=== PATIENT | male | born 1950 | race Caucasian/White ===

== ENCOUNTER → 2016-05-04 | Outpatient (CLI) | payer OTHER, BC ==
[~2016-05-04] MED LIST: ACT15 PO; BYTI10 SQ; COQ10100 PO; CPR500 PO; GLC500 PO; INSDGI SC; LISI10TA PO; MULT-506 PO; OMEG10007 PO; SIMV80TA2 PO; VGR50 PO
--- NOTE | 2016-05-04 11:05 | DIAGNOSTIC IMAGING REPORT ---
LEFT KNEE 1 OR 2 VIEWS ROUTINE CLINICAL HISTORY: Left knee pain COMPARISON: None. DISCUSSION: No fractures are visualized. There is subtle chondrocalcinosis. There are degenerative changes with narrowing medial joint compartment. There is quadriceps insertional calcification at the superior patellar level. There is no evidence for soft tissue swelling. IMPRESSION: 1. No acute fractures 2. Mild degenerative changes with medial joint compartment narrowing 3. Very subtle chondrocalcinosis Electronically signed by: Edwin Dumont M.D. 05/04/2016 11:04 AM Dictated Date/Time: 05/04/2016 11:03 AM
== END | disposition home or self-care (01) ==
LOC: C.RAD1850 10:38
PROVIDERS: ATTEND Family Medicine
DX: M25.562 Pain in left knee (principal)

== ENCOUNTER → 2016-08-14 | Outpatient (CLI) | payer OTHER, BC ==
[2016-08-14 12:51] LABS: ALT/SGPT 82 U/L (12-78); BLOOD UREA NITROGEN 17 mg/dl (7-18); BUN/CREATININE RATIO 20.5 (10-20); CARBON DIOXIDE 28 mmol/L (21-32); CHLORIDE 106 mmol/L (98-107); CHOLESTEROL 136 mg/dl (0-200); CREATININE 0.84 mg/dl (0.60-1.40); GLUCOSE 122 mg/dl (70-99); POTASSIUM 4.4 mmol/L (3.5-5.1); SODIUM 139 mmol/L (136-145); TRIGLYCERIDES 95 mg/dl (0-150); VERY LOW DENSITY LIPOPROT CALC 19 mg/dl
[2016-08-14 12:52] LABS: ESTIMATED AVERAGE GLUCOSE 160 mg/dl; HA1C FLAG Normal (Normal)
[2016-08-14 13:02] LABS: ALKALINE PHOSPHATASE 58 U/L (45-117); AST/SGOT 40 U/L (15-37); CHOLESTEROL/HDL RATIO 3.5; HDL CHOLESTEROL 39 mg/dl; LDL CHOLESTEROL CALCULATED 78 mg/dl
[2016-08-14 13:03] LABS: CALCIUM 9.8 mg/dl (8.5-10.1)
[2016-08-14 13:23] LABS: RATIO 5.5 mcg/mg (0-30.0)
--- NOTE | 2016-08-19 12:59 | CODING QUERY MEDICAL NECESSITY ---
SUPPORTING DIAGNOSIS NEEDED A supporting diagnosis is required for the test/procedure performed on this patient in order for us to be reimbursed by the patient's insurance. Please provide a supporting diagnosis for the following test/procedure listed below next to the test name along with your signature. *If there is no additional diagnosis for this patient that would support the following test/procedure please document that below next to the test/procedure. Test(s)/Procedure(s) that require a supporting diagnosis: DOS 08/14 * Hba1c DIAGNOSIS: * TSH DIAGNOSIS: Provider Signature: Date: Thank you Rhonda [facility] Once completed, please kindly fax back to [phone] For questions please call [phone]
== END | disposition home or self-care (01) ==
LOC: C.LAB1850 10:38
PROVIDERS: ATTEND Physician Assistant
DX: E66.9 Obesity, unspecified (principal); E11.9 Type 2 diabetes mellitus without complications

== ENCOUNTER → 2016-09-16 | Outpatient (CLI) | payer OTHER, BC ==
[2016-09-16 09:32] LABS: BASO % 0.2 %; BASO ABS # 0.01 K/uL (0-0.2); COMPLETE YES; EOS % 3.5 %; HEMATOCRIT 40.3 % (42-52); IG% 0.2 %; LYMPH % 39.5 %; MEAN CELL VOLUME 90.6 fL (80-100); MEAN CORPUSCULAR HEMOGLOBIN 29.7 pg (25-34); MEAN CORPUSCULAR HGB CONC 32.8 g/dl (32-36); MEAN PLATELET VOLUME 9.3 fL (7.4-10.4); MONO % 10.5 %; NEUT % 46.1 %; PLATELET COUNT 294 K/uL (130-400); RED BLOOD COUNT 4.45 M/uL (4.7-6.1); WHITE BLOOD COUNT 6.58 K/uL (4.8-10.8)
[2016-09-16 09:56] LABS: ALKALINE PHOSPHATASE 53 U/L (45-117); ALT/SGPT 50 U/L (12-78); AST/SGOT 28 U/L (15-37)
== END | disposition home or self-care (01) ==
LOC: C.LAB1850 07:54
PROVIDERS: ATTEND Physician Assistant
DX: E11.9 Type 2 diabetes mellitus without complications (principal); E78.5 Hyperlipidemia, unspecified

== ENCOUNTER → 2017-03-04 | Outpatient (CLI) | payer OTHER, BC ==
[2017-03-04 12:53] LABS: ESTIMATED AVERAGE GLUCOSE 177 mg/dl; HA1C FLAG Normal (Normal)
== END | disposition home or self-care (01) ==
LOC: C.LAB1850 10:36
PROVIDERS: ATTEND Physician Assistant
DX: E11.9 Type 2 diabetes mellitus without complications (principal)

== ENCOUNTER → 2017-06-29 | Outpatient (CLI) | payer OTHER, BC ==
[2017-06-29 09:41] LABS: ALBUMIN 3.2 gm/dl (3.4-5.0); ALT/SGPT 116 U/L (12-78); AST/SGOT 54 U/L (15-37); BLOOD UREA NITROGEN 14 mg/dl (7-18); CALCIUM 9.9 mg/dl (8.5-10.1); CARBON DIOXIDE 29 mmol/L (21-32); CREATININE 0.84 mg/dl (0.60-1.40); GLUCOSE 85 mg/dl (70-99); POTASSIUM 4.7 mmol/L (3.5-5.1); SODIUM 139 mmol/L (136-145)
[2017-06-29 09:52] LABS: ALKALINE PHOSPHATASE 48 U/L (45-117); CHOLESTEROL 108 mg/dl (0-200); LDL CHOLESTEROL CALCULATED 55 mg/dl; TOTAL PROTEIN 7.5 gm/dl (6.4-8.2)
== END | disposition home or self-care (01) ==
LOC: C.LAB1850 07:58
PROVIDERS: ATTEND Physician Assistant
DX: E11.9 Type 2 diabetes mellitus without complications (principal); I10 Essential (primary) hypertension; E78.5 Hyperlipidemia, unspecified; E66.9 Obesity, unspecified

== ENCOUNTER → 2017-07-26 | Outpatient (CLI) | payer OTHER, BC ==
--- NOTE | 2017-07-26 07:53 | DIAGNOSTIC IMAGING REPORT ---
ABDOMINAL ULTRASOUND, RIGHT UPPER QUADRANT HISTORY: Abnormal LFTs.. COMPARISON: Abdominal ultrasound 02/03/2012. FINDINGS: Pancreas: There appears to be a 1.4 x 1.2 x 1.1 cm hypoechoic/cystic lesion at the pancreatic head. This is suboptimally assessed due to the overlying bowel gas. Liver: The liver is slightly echogenic consistent with mild fatty change. Gallbladder: Normal gallbladder. No gallstones. CBD: 6 mm. Right kidney: No hydronephrosis. A 5.9 x 4.6 cm exophytic cyst within the lower pole. This is similar in size to the prior studies. IMPRESSION: 1. Slightly echogenic liver suggestive of mild fatty change. 2. Normal gallbladder. 3. A 1.4 x 1.2 x 1.1 cm hypoechoic/cystic lesion at the pancreatic head. This favors a cystic neoplasm of the pancreas suggests an intraductal papillary mucinous neoplasm. Dedicated pancreatic MRI with MRCP is recommended for confirmation. Electronically signed by: Femi Vigil M.D. 07/26/2017 7:52 AM Dictated Date/Time: 07/26/2017 7:38 AM
== END | disposition home or self-care (01) ==
LOC: C.ULTR 07:03
PROVIDERS: ATTEND Internal Medicine Gastroenterology
DX: R79.89 Other specified abnormal findings of blood chemistry (principal)

== ENCOUNTER → 2017-08-27 | Outpatient (CLI) | payer OTHER, BC ==
[~2017-08-27] MED LIST changes: +GADAVIST IV PRN
--- NOTE | 2017-08-27 23:35 | DIAGNOSTIC IMAGING REPORT ---
ABDOMEN COMBO HISTORY: 66 years-old Male PANCREATIC CYST,FATTY LIVER,EVAL BLOCKAGE OF DUCTS 1.4 cm cystic lesion of the pancreatic head seen on comparison ultrasound. COMPARISON: Right upper quadrant ultrasound 07/26/2017 TECHNIQUE: Multiplanar multisequence MRI of the abdomen was obtained both with and without 11.5 mL Gadavist utilizing pancreatic mass protocol. MRCP images were also obtained. FINDINGS: The imaged lower thorax appears unremarkable. No pleural effusion. Imaged inferior cardiac chambers appear mildly enlarged. No pericardial effusion. Thoracic aorta and IVC are unremarkable. No aortic aneurysm. Portal and splenic veins appear unremarkable. No bulky adenopathy. There are a few subcentimeter T2 hyperintense lesions of the right hepatic lobe measuring up to 8 mm suggesting hepatic cysts. No intrahepatic biliary ductal dilation. Common bile duct measures 4 mm. Gallbladder is unremarkable without cholelithiasis. No pancreatic duct dilation or evidence of pancreatic divisum. There is a 9 x 9 x 12 mm circumscribed T2 hyperintense homogeneous nonenhancing lesion of the pancreatic head nicely seen on image 15 series 6 and image 67 of series 13 which appears to communicate with the main pancreatic duct. Renal sinus cysts are noted bilaterally measuring up to 4.5 cm on the right. Renal sinus cysts are seen on the left measuring up to 1.1 cm. Mild nonspecific bilateral perinephric stranding without hydronephrosis. Spleen and adrenal glands appear unremarkable. Mild levoscoliosis of the lumbar spine. Soft tissues are unremarkable. Mild diastases recti. IMPRESSION: 1. 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 No suspicious pancreatic lesions or pancreatic ductal dilation identified. 2. Unremarkable appearance of the gallbladder. No biliary ductal dilation. 3. Renal and hepatic cysts. The above report was generated using voice recognition software. It may contain grammatical, syntax or spelling errors. Electronically signed by: Juan Mcqueen M.D. 08/27/2017 11:34 PM Dictated Date/Time: 08/27/2017 7:50 PM
== END | disposition home or self-care (01) ==
LOC: C.MRI 17:56
PROVIDERS: ATTEND Internal Medicine Gastroenterology
DX: K86.2 Cyst of pancreas (principal)

== ENCOUNTER → 2017-11-26 | Outpatient (CLI) | payer OTHER, BC ==
[~2017-11-26] MED LIST changes: -GADAVIST IV PRN
[2017-11-26 09:51] LABS: HEMOGLOBIN A1C 8.8 % (4.5-5.6)
[2017-11-26 09:58] LABS: ALBUMIN 3.6 gm/dl (3.4-5.0); ALKALINE PHOSPHATASE 53 U/L (45-117); ALT/SGPT 100 U/L (12-78); AST/SGOT 66 U/L (15-37); BLOOD UREA NITROGEN 13 mg/dl (7-18); CARBON DIOXIDE 28 mmol/L (21-32); CHOLESTEROL 123 mg/dl (0-200); CREATININE 0.85 mg/dl (0.60-1.40); GLUCOSE 127 mg/dl (70-99); LDL CHOLESTEROL CALCULATED 67 mg/dl; POTASSIUM 4.3 mmol/L (3.5-5.1); SODIUM 138 mmol/L (136-145); TOTAL PROTEIN 7.6 gm/dl (6.4-8.2)
== END | disposition home or self-care (01) ==
LOC: C.LAB1850 08:36
PROVIDERS: ATTEND Physician Assistant
DX: I10 Essential (primary) hypertension (principal); E78.5 Hyperlipidemia, unspecified; E11.9 Type 2 diabetes mellitus without complications

== ENCOUNTER 2020-01-29 09:16 | Observation (INO) ==
[2020-01-29] MEDS ORDERED: ONDANSETRON INJ 2 MG/ML 2 ML VIAL IV STA (09:32)
[2020-01-29] MEDS ORDERED: ACETAMINOPHEN 500 MG TAB PO STA (09:32)
[2020-01-29] MEDS ORDERED: ACETAMINOPHEN 1000 MG/100 ML IV IV ONE (09:37)
--- NOTE | 2020-01-29 09:41 | Emergency Department Note ---
Impression & Plan Acute appendicitis, Fever, Abdominal pain, acute, right lower quadrant, Acute dyspnea ED Provider Note NAME: CRISTEL GUAN AGE: 69 SEX: M : 1950 ARRIVES VIA: Walk-In INFORMANT: Patient, ED PROVIDER(S): Abram Caro DO CHIEF COMPLAINT: Abdominal pain HPI: The patient is a 69-year-old male who presented to the emergency department for an evaluation of right lower quadrant abdominal pain. The patient states his pain began last evening which was diffuse across the lower abdomen. He started having chills this morning and started shaking. He states his pain is mild to moderate at this time. The pain is worsened with any ambulation or movement. He did not take any medication for fever and did not know he had a fever until he came to the emergency department. The patient did not see his primary care physician for the symptoms. The patient was going to schedule an appointment because of the severity of his symptoms his significant other brought him immediately to the emergency department. He denies having any diarrhea. He denies having any cough or recent traveling but does complain of shortness of breath. The patient denies having any lower extremity swelling or rashes. The patient states that he still has his appendix. ROS: See above HPI for pertinent positives & negatives. A total of 10 systems reviewed and were otherwise negative. PAST MEDICAL HISTORY: See Below PAST SURGICAL HISTORY: See Below FAMILY HISTORY: See Below SOCIAL HISTORY: See Below HOME MEDICATIONS: See Below ALLERGIES: See Below VITALS: See Below PHYSICAL EXAMINATION: GENERAL: The patient is awake and alert. He is mildly anxious appearing and appears to be uncomfortable. EYES: The conjunctivae are clear. The pupils are round and reactive. EARS, NOSE, MOUTH AND THROAT: The nose is without any evidence of any deformity. Mucous membranes are moist. Tongue is midline. NECK: The neck is nontender and supple. RESPIRATORY: Diminished breath sounds are noted at the right base. There are faint rales at the right base. There was mild conversational dyspnea appreciated. CARDIOVASCULAR: Tachycardic rate with regular rhythm was noted. There was no definite murmur. GASTROINTESTINAL: The abdomen is moderately distended. There is right middle and right lower quadrant tenderness to palpation. There is guarding in the right middle quadrant. MUSCULOSKELETAL/EXTREMITIES: There is no evidence of gross deformity full range of motion is noted in the hips and shoulders. SKIN: There is no obvious evidence of any rash. Trace pedal edema was noted bilaterally. NEUROLOGIC: Patient is awake alert and oriented x3. MEDICAL DECISION MAKING: The patient is a 69-year-old male who presented to the emergency department for an evaluation of fever. The patient on physical exam was found to have signs of acute appendicitis. I discussed the patient's laboratory and radiographic studies with him. He was treated with IV fluids as well as IV antibiotics. I discussed this findings with the on-call general surgical group. They have agreed to evaluate the patient in the emergency department for further management and disposition. The patient's radiographic studies appear to be consistent with acute appendicitis. Triage Nursing notes reviewed. Prior medical records reviewed Vital Signs: reviewed and remarkable for elevated temperature and initial hypertension. Differential diagnosis: Etiologies such as appendicitis, diverticulitis, obstruction, inflammatory bowel disease, renal colic, PUD, biliary pathology, pancreatitis, mesenteric ischemia, aortic pathology, infections, genitourinary, UTI, perforated viscus, as well as others were entertained. ER treatment provided: See below Diagnostics interpreted by me: ECG: EKG was obtained in the emergency department. My interpretation is normal sinus rhythm 96 bpm. Right bundle branch block pattern was noted. There was no ectopy. No previous tracing was available for comparison. Cardiac Monitoring: An order was placed for continuous cardiac monitoring. The monitor shows a rate of 95 bpm with sinus rhythm. Laboratory studies: As stated above and show below. Imaging studies: See below Consultation(s): 1125: I discussed this case with Sherri who is on-call for the general surgical group. They will evaluate the patient in the emergency department for further management and disposition. Past Med/Surg History Medical History Hyperlipidemia Hypertension Obesity Type 2 diabetes mellitus Surgical History Hx of colonoscopy Family History Father Stroke Heart disease Diabetes Mother Diabetes Hypertension Unknown Diabetes Social History Smoking Status: Never smoker Preferred Language: Greek Feels Safe at Home: Yes Allergies Allergies Allergy/AdvReac Type Severity Reaction Status Date / Time Bactrim Allergy Unknown hives, Verified 11/13/17 15:49 itchiness, weight loss sulfamethoxazole Allergy Unknown hives, Verified 01/29/20 10:08 itchiness, weight loss trimethoprim Allergy Unknown hives, Verified 01/29/20 10:08 itchiness, weight loss Home Meds Home Medications Medication Instructions Recorded Confirmed aspirin 81 mg tablet,delayed 81 mg PO QAM 03/13/19 01/29/20 release glucagon (human recombinant) 1 mg See Rx Instructions .ROUTE 03/13/19 01/29/20 solution for injection .COMPLEX PRN krill 1,000 mg-omega-3 170 mg-dha 1 cap PO BIDM 03/13/19 01/29/20 50 mg-epa 80 cc-nrdbbb-cxgdz capsule lisinopril 40 mg tablet 40 mg PO QAM 03/13/19 01/29/20 metformin 500 mg tablet See Rx Instructions .ROUTE .COMPLEX 03/13/19 01/29/20 multivitamin,dv-vucz-syliwgtb 1 tab PO QAM 03/13/19 01/29/20 simvastatin 40 mg tablet 40 mg PO HS 03/13/19 01/29/20 tamsulosin 0.4 mg capsule 0.4 mg PO HS 03/13/19 01/29/20 vitamin E (dl, acetate) 450 mg 450 mg PO DAILY 10/13/19 01/29/20 (1,000 unit) capsule Previous Rx's Medication Instructions Recorded insulin degludec 200 unit/mL (3 88 units SQ PM 90 Days #39 ml 07/28/19 mL) subcutaneous pen pen needle, diabetic 31 gauge x #400 ea 08/15/1907/09" OneTouch UltraSoft Lancets #300 ea NS 10/13/19 OneTouch Ultra Blue Test Strip #400 ea NS 12/05/19 Novolog Flexpen U-100 Insulin 100 See Rx Instructions SQ TID #30 ml 01/08/20 unit/mL (3 mL) subcutaneous NS Results & Data (ED) Vital Signs Vital Signs - 24 hr 01/29/20 09:21 01/29/20 09:54 01/29/20 10:00 Temperature 38 C H Temperature Source Oral Pulse Rate 118 H 96 H 93 H Pulse Rate from SpO2 Sensor Respiratory Rate 20 20 22 Blood Pressure 204/85 H Blood Pressure Mean 124 Blood Pressure Position Sitting Pulse Oximetry 93 Oxygen Delivery Method Room Air Sepsis Recent Fever Within 48 Hours No Sepsis New/Unexplained Change in Mental Status N/A Sepsis Action Taken by Nursing No Action Required 01/29/20 10:30 01/29/20 10:37 01/29/20 10:38 Temperature Temperature Source Pulse Rate 99 H 102 H 103 H Pulse Rate from SpO2 Sensor 102 H Respiratory Rate 24 24 22 Blood Pressure 136/67 136/67 Blood Pressure Mean 90 74 Blood Pressure Position Pulse Oximetry 92 93 Oxygen Delivery Method Room Air Sepsis Recent Fever Within 48 Hours Sepsis New/Unexplained Change in Mental Status Sepsis Action Taken by Nursing 01/29/20 11:13 01/29/20 11:16 01/29/20 11:17 Temperature Temperature Source Pulse Rate 96 H 92 H 93 H Pulse Rate from SpO2 Sensor 94 H 94 H Respiratory Rate 21 21 17 Blood Pressure 130/66 Blood Pressure Mean 80 Blood Pressure Position Pulse Oximetry 91 93 Oxygen Delivery Method Sepsis Recent Fever Within 48 Hours Sepsis New/Unexplained Change in Mental Status Sepsis Action Taken by Nursing 01/29/20 11:18 01/29/20 11:30 01/29/20 11:31 Temperature 37.7 C H Temperature Source Oral Pulse Rate 100 H 101 H Pulse Rate from SpO2 Sensor 101 H 99 H Respiratory Rate 19 23 Blood Pressure 145/69 H Blood Pressure Mean 104 Blood Pressure Position Pulse Oximetry 93 94 Oxygen Delivery Method Sepsis Recent Fever Within 48 Hours Sepsis New/Unexplained Change in Mental Status Sepsis Action Taken by Fpc Medications Current Medication List: was personally reviewed by me Laboratory Data Attestation: I reviewed the patient's lab results. Result diagrams: 01/29/20 10:05 01/29/20 10:05 Lab Results 01/29/20 01/29/20 01/29/20 Range/Units 10:05 10:05 10:05 WBC 5.28 (4.8-10.8) K/uL RBC 4.36 L (4.7-6.1) M/uL Hgb 13.0 L (14.0-18.0) g/dL POC Hgb (14.0-18.0) g/dl Hct 39.8 L (42-52) % POC Hct (42-52) % MCV 91.3 (80-100) fL MCH 29.8 (25-34) pg MCHC 32.7 (32-36) g/dL RDW Std Deviation 47.3 H (36.4-46.3) fL RDW Coeff of Annette 14.1 (11.5-14.5) % Plt Count 231 (130-400) K/uL MPV 9.3 (7.4-10.4) fL Immature Gran % (Auto) 0.2 % Neut % (Auto) 83.7 % Lymph % (Auto) 13.8 % Pettis % (Auto) 0.6 % Eos % (Auto) 1.7 % Baso % (Auto) 0.0 % Neut # (Auto) 4.42 (1.4-6.5) K/uL Lymph # (Auto) 0.73 L (1.2-3.4) K/uL Pettis # (Auto) 0.03 L (0.11-0.59) K/uL Eos # (Auto) 0.09 (0-0.5) K/uL Baso # (Auto) 0.00 (0-0.2) K/uL Immature Gran # (Auto) 0.01 (0.00-0.02) K/uL PT 10.9 (9.0-12.0) Seconds INR 1.0 (0.9-1.1) APTT 22.4 (21.0-31.0) Seconds PTT Ratio 0.8 POC Sodium (135-144) mmol/L Sodium 138 (136-145) mmol/L POC Potassium (3.3-5.0) mmol/L Potassium 4.4 (3.5-5.1) mmol/L POC Chloride (101-112) mmol/L Chloride 107 (98-107) mmol/L Carbon Dioxide 26 (21-32) mmol/L POC Total CO2 (24-31) mmol/L Anion Gap 6.0 (3-11) POC Anion Gap (16-25) mmol/L POC BUN (7-18) mg/dl BUN 18 (7-18) mg/dl Creatinine 1.07 (0.6-1.4) mg/dl POC Creatinine (0.6-1.3) mg/dl Est Cr Clr Drug Dosing 79.4 ml/min Est GFR ( Amer) 80.5 Est GFR (Non-Af Amer) 69.5 BUN/Creatinine Ratio 16.7 (10-20) Glucose 173 H (70-99) mg/dl POC Glucose (other) (70-99) mg/dl Calcium 9.1 (8.5-10.1) mg/dl POC Ioniz Calcium Colleen (1.12-1.32) mmol/l Total Bilirubin 0.7 (0.2-1) mg/dl AST 22 (15-37) U/L ALT 38 (12-78) U/L Alkaline Phosphatase 61 (45-117) U/L Troponin I < 0.015 (0-0.045) ng/ml Total Protein 7.7 (6.4-8.2) gm/dl Albumin 3.4 (3.4-5.0) gm/dl Globulin 4.3 H (2.5-4.0) gm/dl Albumin/Globulin Ratio 0.8 L (0.9-2) Lipase 816 H (73-393) U/L COVID-19 Eval Order 01/29/20 01/29/20 Range/Units 10:23 11:28 WBC (4.8-10.8) K/uL RBC (4.7-6.1) M/uL Hgb (14.0-18.0) g/dL POC Hgb 13.3 L (14.0-18.0) g/dl Hct (42-52) % POC Hct 39 L (42-52) % MCV (80-100) fL MCH (25-34) pg MCHC (32-36) g/dL RDW Std Deviation (36.4-46.3) fL RDW Coeff of Annette (11.5-14.5) % Plt Count (130-400) K/uL MPV (7.4-10.4) fL Immature Gran % (Auto) % Neut % (Auto) % Lymph % (Auto) % Pettis % (Auto) % Eos % (Auto) % Baso % (Auto) % Neut # (Auto) (1.4-6.5) K/uL Lymph # (Auto) (1.2-3.4) K/uL Pettis # (Auto) (0.11-0.59) K/uL Eos # (Auto) (0-0.5) K/uL Baso # (Auto) (0-0.2) K/uL Immature Gran # (Auto) (0.00-0.02) K/uL PT (9.0-12.0) Seconds INR (0.9-1.1) APTT (21.0-31.0) Seconds PTT Ratio POC Sodium 140 (135-144) mmol/L Sodium (136-145) mmol/L POC Potassium 4.5 (3.3-5.0) mmol/L Potassium (3.5-5.1) mmol/L POC Chloride 103 (101-112) mmol/L Chloride (98-107) mmol/L Carbon Dioxide (21-32) mmol/L POC Total CO2 24 (24-31) mmol/L Anion Gap (3-11) POC Anion Gap 19.0 (16-25) mmol/L POC BUN 18 (7-18) mg/dl BUN (7-18) mg/dl Creatinine (0.6-1.4) mg/dl POC Creatinine 0.8 (0.6-1.3) mg/dl Est Cr Clr Drug Dosing ml/min Est GFR ( Amer) Est GFR (Non-Af Amer) BUN/Creatinine Ratio (10-20) Glucose (70-99) mg/dl POC Glucose (other) 175 H (70-99) mg/dl Calcium (8.5-10.1) mg/dl POC Ioniz Calcium Colleen 1.21 (1.12-1.32) mmol/l Total Bilirubin (0.2-1) mg/dl AST (15-37) U/L ALT (12-78) U/L Alkaline Phosphatase (45-117) U/L Troponin I (0-0.045) ng/ml Total Protein (6.4-8.2) gm/dl Albumin (3.4-5.0) gm/dl Globulin (2.5-4.0) gm/dl Albumin/Globulin Ratio (0.9-2) Lipase (73-393) U/L COVID-19 Eval Order Covid19 IDNow atMVTC Administered Medications Sodium Chloride (Nss 1000ml) 1,000 mls @ 999 mls/hr IV .Q1H1M ONE Stop: 01/29/20 12:40 Last Admin: 01/29/20 11:48 Dose: 999 mls/hr Documented by: [id number] Cefoxitin Sodium (Mefoxin) 2,000 mg in 60 mls @ 100 mls/hr IV NOW STA Stop: 01/29/20 12:15 Last Admin: 01/29/20 12:07 Dose: 100 mls/hr Documented by: [id number] Discontinued Medications Acetaminophen (Acetaminophen 500 Mg Tab) 1,000 mg PO NOW STA Stop: 01/29/20 09:33 Last Admin: 01/29/20 09:39 Dose: Not Given Documented by: [id number] Acetaminophen (Acetaminophen 1000 Mg/100 Ml Iv) 1,000 mg IV ONE ONE Stop: 01/29/20 09:38 Last Admin: 01/29/20 10:41 Dose: 1,000 mg Documented by: [id number] Sodium Chloride (Nss 1000ml) 1,000 mls @ 999 mls/hr IV .Q1H1M KITTY Stop: 01/29/20 10:45 Last Infusion: 01/29/20 11:49 Dose: 0 mls/hr Documented by: [id number] Admin: 01/29/20 10:42 Dose: 999 mls/hr Documented by: [id number] Ioversol (Optiray 320 125ml) 120 ml IV ONCE ONE Stop: 01/29/20 11:07 Last Admin: 01/29/20 11:07 Dose: 120 ml Documented by: [id number] Ondansetron HCl (Ondansetron Inj 2 Mg/Ml 2 Ml Vial) 4 mg IV NOW STA Stop: 01/29/20 09:33 Last Admin: 01/29/20 10:40 Dose: 4 mg Documented by: [id number] Imaging Data Radiologist's Impression: CT ANGIOGRAPHY OF THE CHEST, PULMONARY EMBOLUS PROTOCOL CLINICAL HISTORY: Shortness of breath and tachycardia. COMPARISON STUDY: No previous studies for comparison. TECHNIQUE: Following IV administration of 120 mL of Optiray-320, helical axial images of the chest were obtained utilizing the pulmonary embolus protocol. Maximal intensity projections and sagittal and coronal reformats were viewed on an independent 3D workstation. IV contrast was administered without complication. Automated exposure control was utilized for the study. A dose lowering technique was utilized adhering to the principles of ALARA. CT DOSE: 2393.94 mGy.cm FINDINGS: No pulmonary emboli are identified. There is mild dilatation of the central pulmonary arteries. Main pulmonary artery measures 3.5 cm in caliber. Mild cardiomegaly is noted. There is no pericardial effusion. There is no pneumothorax or pleural effusion. There may be slight straightening of the interventricular septum. Central airways are patent. There is no consolidation. There is mild subpleural reticulation. There is no honeycombing. There is no bronchiectasis. There is a probable 5 mm left upper lobe nodule on image 139. Several mildly enlarged bilateral hilar lymph nodes are noted, including a right hilar node on image 146 of 271 measures 1.3 cm in short axis diameter. The abdomen and pelvis will be reported separately. There is a small hiatal hernia. IMPRESSION: 1. No pulmonary emboli identified although segmental and subsegmental pulmonary suboptimally assessed of this exam. 2. Mild cardiomegaly. Mild dilatation of the central pulmonary arteries which raises the possibility of pulmonary hypertension. 3. Mild subpleural reticulation within the lungs. This favors interstitial lung disease. 4. Mildly enlarged bilateral hilar lymph nodes which are nonspecific but may be related to interstitial lung disease. A follow-up chest CT in 6 months is recommended. 5. 5 mm low suspicion left upper lobe nodule which can be assessed on subsequent chest CT. ACT 112: Negative or not required by law. Electronically signed by: Zaheer Da Silva M.D. 01/29/2020 11:38 AM Dictated: 01/29/20 1111 Transcribed: 01/29/[address] OF THE ABDOMEN AND PELVIS WITH CONTRAST CLINICAL HISTORY: Right lower quadrant abdominal pain. COMPARISON STUDY: MRI of the abdomen September 09, 2018. CT of the abdomen and pelvis September 25, 2011. TECHNIQUE: Following IV administration of 120 mL of Optiray-320, axial images of the abdomen and pelvis were obtained from the lung bases to the proximal femurs. Images were reviewed in the axial, sagittal, and coronal planes. IV contrast was administered without complication. Automated exposure control was utilized for the study. A dose lowering technique was utilized adhering to the principles of ALARA. FINDINGS: Please note that the chest CT will be reported separately. Fatty infiltration of the liver is noted. A 1.3 cm segment 6 hepatic cyst is unchanged. There is no biliary or pancreatic ductal dilatation. A few bilateral renal cysts are noted, the largest of which the 5.5 cm right renal cyst. There is no hydronephrosis. The spleen, adrenal glands and pancreas are unremarkable. There is colonic diverticulosis without evidence for acute diverticulitis. There is no evidence for a bowel obstruction. The appendix is mildly dilated, measuring 7 mm in caliber. The appendix is fluid-filled. There is moderate periappendiceal infiltration. A few appendicoliths are noted. There is no free air or abscess. Bladder wall irregularity with trabeculation is suspected small bladder diverticula are noted. There are no suspicious osseous lesions. IMPRESSION: Findings consistent with acute appendicitis. No free air or abscess. ACT 112: Negative or not required by law. Electronically signed by: Zaheer Da Silva M.D. 01/29/2020 11:17 AM Dictated: 01/29/20 1112 Transcribed: 01/29/20 111 Blood Pressure Blood Pressure Findings: Normal blood pressure Discharge Plan Visit Data Chief Complaint: Abdominal Pain Stated Complaint: LOWER RIGHT SIDE PAIN IN BELOW WAIST, CHILLS ED Provider: Abram Caro Discharge Problem: Acute appendicitis, Fever, Abdominal pain, acute, right lower quadrant, Acute dyspnea Patient Disposition: Being Evaluated by Surgeon Condition: Good Discharge Instructions Barrett/Other Patient Handouts: 2019-nCoV Forms Stand Alone Forms: My [facility]SONE Prescriptions Prescriptions: No Action Tresiba FlexTouch U-200 200 unit/mL (3 mL) insulin pen 88 units SQ PM 90 Days Qty: 39 RF: 3 (DME) pen needle, diabetic [BD Ultra-Fine Mini Pen Needle] 31 gauge x 3/16" needle See Rx Instructions .ROUTE .MEDSUPPLY Qty: 400 RF: 3 (DME) blood sugar diagnostic [OneTouch Ultra Blue Test Strip] Strip See Rx Instructions .ROUTE .MEDSUPPLY Qty: 400 RF: 3 Novolog Flexpen U-100 Insulin 100 unit/mL (3 mL) insulin pen See Rx Instructions SQ TID Qty: 30 RF: 5 aspirin 81 mg tablet,delayed release (DR/EC) 81 mg PO QAM RF: 0 tamsulosin [Flomax] 0.4 mg capsule 0.4 mg PO HS RF: 0 Glucagon Emergency Kit (human) 1 mg recon soln See Rx Instructions .ROUTE .COMPLEX PRN (Reason: Hypoglycemia) RF: 0 [id number]-jr-[id number]-ast [krill oil] [id number] mg capsule 1 cap PO BIDM RF: 0 lisinopril 40 mg tablet 40 mg PO QAM RF: 0 metformin 500 mg tablet See Rx Instructions .ROUTE .COMPLEX RF: 0 Complete Multivitamin tablet 1 tab PO QAM RF: 0 simvastatin 40 mg tablet 40 mg PO HS RF: 0 vitamin E (dl, acetate) 450 mg (1,000 unit) capsule 450 mg PO DAILY RF: 0 (DME) lancets [OneTouch UltraSoft Lancets] Misc See Dose Instructions .ROUTE .MEDSUPPLY Qty: 300 RF: 3 Referrals Referrals: Mikhail Hyman MD [Primary Care Provider] -
[2020-01-29] MEDS ORDERED: SODIUM CHLORIDE 0.9% 1000ML 1,000 ML IV SCH (09:45)
[2020-01-29 10:35] LABS: Eosinophils # (auto) 0.09 K/uL (0-0.5); Eosinophils % (auto) 1.7 %; Hematocrit (blood only) 39.8 % (42-52); Immature Granulocytes # (auto) 0.01 K/uL (0.00-0.02); Immature Granulocytes % (auto) 0.2 %; Lymphocytes # (auto) 0.73 K/uL (1.2-3.4); Lymphocytes % (auto) 13.8 %; Mean Corpuscular Hemoglobin 29.8 pg (25-34); Mean Corpuscular Hgb Conc 32.7 g/dL (32-36); Mean Corpuscular Volume 91.3 fL (80-100); Mean Platelet Volume 9.3 fL (7.4-10.4); Monocytes # (auto) 0.03 K/uL (0.11-0.59); Monocytes % (auto) 0.6 %; Neutrophils # (auto) 4.42 K/uL (1.4-6.5); Neutrophils % (auto) 83.7 %; Platelet Count 231 K/uL (130-400); RDW Coefficient of Variation 14.1 % (11.5-14.5); RDW Standard Deviation 47.3 fL (36.4-46.3); Red Blood Count 4.36 M/uL (4.7-6.1); White Blood Count 5.28 K/uL (4.8-10.8)
[2020-01-29 10:35] LABS: iSTAT Creatinine 0.8 mg/dl (0.6-1.3); iSTAT Hemoglobin 13.3 g/dl (14.0-18.0); iSTAT Ionized Calcium 1.21 mmol/l (1.12-1.32); iSTAT Potassium 4.5 mmol/L (3.3-5.0)
[2020-01-29 10:50] LABS: Alanine Aminotransferase 38 U/L (12-78); Albumin Level 3.4 gm/dl (3.4-5.0); Aspartate Aminotransferase 22 U/L (15-37); BUN Creatinine Ratio 16.7 (10-20); Blood Urea Nitrogen 18 mg/dl (7-18); Calcium 9.1 mg/dl (8.5-10.1); Carbon Dioxide 26 mmol/L (21-32); Chloride 107 mmol/L (98-107); Creatinine Clr Calc Pharmacy 79.4 ml/min; Est GFR (African American) 80.5; Est GFR (Non-African American) 69.5; Glucose 173 mg/dl (70-99); Lipase 816 U/L (73-393); Potassium 4.4 mmol/L (3.5-5.1); Sodium 138 mmol/L (136-145)
[2020-01-29 10:51] LABS: Partial Thromboplastin Ratio 0.8; Partial Thromboplastin Time 22.4 Seconds (21.0-31.0); Prothrombin Time 10.9 Seconds (9.0-12.0)
[2020-01-29 10:54] LABS: Albumin Globulin Ratio 0.8 (0.9-2); Alkaline Phosphatase 61 U/L (45-117); Bilirubin,Total 0.7 mg/dl (0.2-1); Globulin 4.3 gm/dl (2.5-4.0); Total Protein 7.7 gm/dl (6.4-8.2); Troponin I < 0.015 ng/ml (0-0.045)
[2020-01-29] MEDS ORDERED: OPTIRAY 320 125ml IV ONE (11:06)
--- NOTE | 2020-01-29 11:18 | CT Scan Report ---
CT OF THE ABDOMEN AND PELVIS WITH CONTRAST CLINICAL HISTORY: Right lower quadrant abdominal pain. COMPARISON STUDY: MRI of the abdomen September 09, 2018. CT of the abdomen and pelvis September 25, 2011. TECHNIQUE: Following IV administration of 120 mL of Optiray-320, axial images of the abdomen and pelv is were obtained from the lung bases to the proximal femurs. Images were reviewed in the axial, sagit mona, and coronal planes. IV contrast was administered without complication. Automated exposure contr ol was utilized for the study. A dose lowering technique was utilized adhering to the principles of ALARA. FINDINGS: Please note that the chest CT will be reported separately. Fatty infiltration of the liver is noted. A 1.3 cm segment 6 hepatic cyst is unchanged. There is no biliary or pancreatic ductal dila tation. A few bilateral renal cysts are noted, the largest of which the 5.5 cm right renal cyst. Ther e is no hydronephrosis. The spleen, adrenal glands and pancreas are unremarkable. There is colonic di verticulosis without evidence for acute diverticulitis. There is no evidence for a bowel obstruction. The appendix is mildly dilated, measuring 7 mm in caliber. The appendix is fluid-filled. There is mo derate periappendiceal infiltration. A few appendicoliths are noted. There is no free air or abscess. Bladder wall irregularity with trabeculation is suspected small bladder diverticula are noted. There are no suspicious osseous lesions. IMPRESSION: Findings consistent with acute appendicitis. No free air or abscess. ACT 112: Negative or not required by law. Electronically signed by: Zaheer Da Silva M.D. 01/29/2020 11:17 AM
--- NOTE | 2020-01-29 11:39 | CT Scan Report ---
CT ANGIOGRAPHY OF THE CHEST, PULMONARY EMBOLUS PROTOCOL CLINICAL HISTORY: Shortness of breath and tachycardia. COMPARISON STUDY: No previous studies for comparison. TECHNIQUE: Following IV administration of 120 mL of Optiray-320, helical axial images of the chest we re obtained utilizing the pulmonary embolus protocol. Maximal intensity projections and sagittal and coronal reformats were viewed on an independent 3D workstation. IV contrast was administered withou t complication. Automated exposure control was utilized for the study. A dose lowering technique wa s utilized adhering to the principles of ALARA. CT DOSE: 2393.94 mGy.cm FINDINGS: No pulmonary emboli are identified. There is mild dilatation of the central pulmonary ariel sonya. Main pulmonary artery measures 3.5 cm in caliber. Mild cardiomegaly is noted. There is no peric ardial effusion. There is no pneumothorax or pleural effusion. There may be slight straightening of t he interventricular septum. Central airways are patent. There is no consolidation. There is mild subp leural reticulation. There is no honeycombing. There is no bronchiectasis. There is a probable 5 mm l eft upper lobe nodule on image 139. Several mildly enlarged bilateral hilar lymph nodes are noted, in cluding a right hilar node on image 146 of 271 measures 1.3 cm in short axis diameter. The abdomen an d pelvis will be reported separately. There is a small hiatal hernia. IMPRESSION: 1. No pulmonary emboli identified although segmental and subsegmental pulmonary suboptimally assessed of this exam. 2. Mild cardiomegaly. Mild dilatation of the central pulmonary arteries which raises the possibility of pulmonary hypertension. 3. Mild subpleural reticulation within the lungs. This favors interstitial lung disease. 4. Mildly enlarged bilateral hilar lymph nodes which are nonspecific but may be related to interstiti al lung disease. A follow-up chest CT in 6 months is recommended. 5. 5 mm low suspicion left upper lobe nodule which can be assessed on subsequent chest CT. ACT 112: Negative or not required by law. Electronically signed by: Zaheer Da Silva M.D. 01/29/2020 11:38 AM
[2020-01-29] MEDS ORDERED: cefOXitin 2,000 MG/60 ML BAG IV STA (11:40)
[2020-01-29] MEDS ORDERED: SODIUM CHLORIDE 0.9% 1000ML 1,000 ML IV ONE (11:40)
--- NOTE | 2020-01-29 11:46 | History & Physical Report ---
Date of Service January 29, 2020 Assessment & Plan (1) Acute appendicitis: This is a 69y M with a PMH of DM2 and HTN who presents to the [facility] ED on 01/29/20 with complaints of right lower abdominal pain and chills. Workup in the ED with a CT a/p revealed findings concerning for acute appendicitis. On examination he is tender to palpation in the RLQ. WBC is normal at 5. Patient has been febrile and tachycardic. We will decide to take pt to the OR for surgical removal of his appendix. A Covid test has been ordered. Patient will remain NPO with IVF and be started on pre-op abx. Dr. Gillespie will be by to obtain consent. (2) Type 2 diabetes mellitus: (3) Obesity: (4) Hyperlipidemia: (5) Hypertension: History of Present Illness Primary Care Provider: Mikhail Hyman MD This is a 69y M with a PMH of DM2 and HTN who presents to the [facility] ED on 01/29/20 with complaints of right lower abdominal pain and chills. Patient reports he woke up around 2am this morning and felt some RLQ pain. He went to the bathroom and returned to bed, however did not get much sleep. The pain continued to persist, but he decided to eat some breakfast which consisted of a bowl of cereal. Subsequently thereafter he says he developed the shivers along with nausea/vomiting. He decided to come into the ER for further evaluation. In the ED he was found to be febrile and tachycardic. A CT a/p was obtained that revealed findings concerning for acute appendicitis. Surgery was consulted for further evaluation. Allergies Allergy/AdvReac Type Severity Reaction Status Date / Time Bactrim Allergy Unknown hives, Verified 11/13/17 15:49 itchiness, weight loss sulfamethoxazole Allergy Unknown hives, Verified 01/29/20 10:08 itchiness, weight loss trimethoprim Allergy Unknown hives, Verified 01/29/20 10:08 itchiness, weight loss Home Medications Home Medications Medication Instructions Recorded Confirmed Type aspirin 81 mg tablet,delayed 81 mg PO QAM 03/13/19 01/29/20 History release glucagon (human recombinant) 1 mg See Rx Instructions .ROUTE 03/13/19 01/29/20 History solution for injection .COMPLEX PRN krill 1,000 mg-omega-3 170 mg-dha 1 cap PO BIDM 03/13/19 01/29/20 History 50 mg-epa 80 wh-nxtykh-siamx capsule lisinopril 40 mg tablet 40 mg PO QAM 03/13/19 01/29/20 History metformin 500 mg tablet See Rx Instructions .ROUTE .COMPLEX 03/13/19 01/29/20 History multivitamin,bn-tjvc-rumnqkxe 1 tab PO QAM 03/13/19 01/29/20 History simvastatin 40 mg tablet 40 mg PO HS 03/13/19 01/29/20 History tamsulosin 0.4 mg capsule 0.4 mg PO HS 03/13/19 01/29/20 History insulin degludec 200 unit/mL (3 88 units SQ PM 90 Days #39 ml 07/28/19 01/29/20 Rx mL) subcutaneous pen pen needle, diabetic 31 gauge x #400 ea 08/15/19 10/13/19 Rx 3/16" OneTouch UltraSoft Lancets #300 ea NS 10/13/19 10/13/19 Rx vitamin E (dl, acetate) 450 mg 450 mg PO DAILY 10/13/19 01/29/20 History (1,000 unit) capsule OneTouch Ultra Blue Test Strip #400 ea NS 12/05/19 Rx Novolog Flexpen U-100 Insulin 100 See Rx Instructions SQ TID #30 ml 01/08/20 01/29/20 Rx unit/mL (3 mL) subcutaneous NS Past Med/Surg History Medical History Hyperlipidemia Hypertension Obesity Type 2 diabetes mellitus Surgical History Hx of colonoscopy Family History Father Stroke Heart disease Diabetes Mother Diabetes Hypertension Unknown Diabetes Social History Smoking Status: Never smoker Preferred Language: Arabic Feels Safe at Home: Yes Review of Systems Constitutional: + chills; no fever Respiratory: no dyspnea Cardiovascular: no chest pain Gastrointestinal: + abdominal pain (RLQ), + nausea and + vomiting; no bloating and no change in bowel habits Physical Exam Physical Exam: awake/alert Respiratory: normal respiratory effort Gastrointestinal (Abdomen): Inspection/Auscultation: + abdomen distended (mild) Percussion/Palpation: + abdomen tender (ttp RLQ) and abdomen soft Results & Data Results & Data ([facility]) Vital Signs (Past 12 Hours) Vital Signs Temp Pulse Resp BP Pulse Ox 01/29/20 11:18 37.7 C H 01/29/20 11:16 92 H 21 130/66 91 01/29/20 11:13 96 H 21 01/29/20 10:38 103 H 22 93 01/29/20 10:37 102 H 24 136/67 92 01/29/20 10:30 99 H 24 136/67 01/29/20 10:00 93 H 22 01/29/20 09:54 96 H 20 01/29/20 09:21 38 C H 118 H 20 204/[address] OF THE ABDOMEN AND PELVIS WITH CONTRAST CLINICAL HISTORY: Right lower quadrant abdominal pain. COMPARISON STUDY: MRI of the abdomen September 09, 2018. CT of the abdomen and pelvis September 25, 2011. TECHNIQUE: Following IV administration of 120 mL of Optiray-320, axial images of the abdomen and pelvis were obtained from the lung bases to the proximal femurs. Images were reviewed in the axial, sagittal, and coronal planes. IV contrast was administered without complication. Automated exposure control was utilized for the study. A dose lowering technique was utilized adhering to the principles of ALARA. FINDINGS: Please note that the chest CT will be reported separately. Fatty infiltration of the liver is noted. A 1.3 cm segment 6 hepatic cyst is unchanged. There is no biliary or pancreatic ductal dilatation. A few bilateral renal cysts are noted, the largest of which the 5.5 cm right renal cyst. There is no hydronephrosis. The spleen, adrenal glands and pancreas are unremarkable. There is colonic diverticulosis without evidence for acute diverticulitis. There is no evidence for a bowel obstruction. The appendix is mildly dilated, measuring 7 mm in caliber. The appendix is fluid-filled. There is moderate periappendiceal infiltration. A few appendicoliths are noted. There is no free air or abscess. Bladder wall irregularity with trabeculation is suspected small bladder diverticula are noted. There are no suspicious osseous lesions. IMPRESSION: Findings consistent with acute appendicitis. No free air or abscess. ACT 112: Negative or not required by law. Electronically signed by: Zaheer Da Silva M.D. 01/29/2020 11:17 AM Supervising Physician Co-Signing Physician Notes Patient seen and examined, labs and imaging reviewed, agree with above. 69-year-old male presented to the emergency department with right lower quadrant abdominal pain that woke him from sleep early this morning. Colonoscopy 2 years ago was reportedly normal. He also had shaking chills and was brought to the emergency department by his . He was febrile and tachycardic upon arrival to the emergency department. On exam he is currently mildly febrile with stable vitals and appears in no acute distress. He is obese. His abdomen is soft, tender to palpation in the right lower quadrant McBurney's point with localized guarding, no rebound. Labs show no significant leukocytosis and a mildly elevated lipase. CT with acute, nonperforated appendicitis. 69-year-old male with appendicitis Plan for laparoscopic appendectomy The risk the procedure were discussed to include but not limited to bleeding, infection, conversion open, damage to surrounding structures, need for future more extensive surgery, abscess, and the risk of anesthesia Preop antibiotics COVID negative The diagnosis, treatment options, details of the procedure recovery, and plan of care were discussed with the patient, all questions were answered, the patient expressed understanding agrees the plan of care as stated PG Care Time/CCT Total # of Minutes Spent Total Time Spent with Patient: Total time spent is greater than 50% in coordination of care (as documented) at patient's floor/unit and/or counseling patient: Coding Level of Care Code 71133 Initial Inpt Care Lvl 2 Diagnoses Acute appendicitis K35.80 Type 2 diabetes mellitus E11.9 Obesity E66.9 Hyperlipidemia E78.5 Hypertension I10
[2020-01-29] MEDS ORDERED: LABETALOL HCL IV 5 MG/ML 20ML IV PRN (12:41)
[2020-01-29] MEDS ORDERED: PHENYLEPHRINE 100MCG/ML 5ML SYR IV PRN (12:41)
[2020-01-29] MEDS ORDERED: fentaNYL citrate 100 MCG/2 ML VIAL IV PRN (12:41)
[2020-01-29] MEDS ORDERED: ATROPINE SULFATE 0.1 MG/ML 10ML SYR IV PRN (12:41)
[2020-01-29] MEDS ORDERED: ePHEDrine sulfate 50 MG/ML AMP IV PRN (12:41)
[2020-01-29] MEDS ORDERED: ONDANSETRON INJ 2 MG/ML 2 ML VIAL IV PRN ×2 (12:41→16:56)
[2020-01-29] MEDS ORDERED: HYDROmorphone INJ 1 MG/ML SYRINGE IV PRN (12:41)
[2020-01-29] MEDS ORDERED: MEPERIDINE HCL 25 MG/ML CARP/VIAL IV PRN (12:41)
--- NOTE | 2020-01-29 12:45 | Anesthesiology Consultation ---
Date of Service January 29, 2020 Covid 19 negative today. Assessment & Plan (1) Encounter for pre-operative examination: Chart Review Chart Review: Acceptable Risk for Surgery (necessary/emergency surgery) and Patient NOT seen in Pre Admission Testing Consults Requested none History Surgery Operation Date: 01/29/20 09:25 Proposed Procedures p Laparoscopic Appendectomy - Nadeem Gillespie, , FACS Height/Weight Height: 5 ft 8 in Weight: 119 kg Allergies Allergy/AdvReac Type Severity Reaction Status Date / Time Bactrim Allergy Unknown hives, Verified 11/13/17 15:49 itchiness, weight loss sulfamethoxazole Allergy Unknown hives, Verified 01/29/20 10:08 itchiness, weight loss trimethoprim Allergy Unknown hives, Verified 01/29/20 10:08 itchiness, weight loss Medications Home Medications Medication Instructions Recorded Confirmed Last Taken aspirin 81 mg tablet,delayed 81 mg PO QAM 03/13/19 01/29/20 01/29/20 release glucagon (human recombinant) 1 mg See Rx Instructions .ROUTE 03/13/19 01/29/20 Unknown solution for injection .COMPLEX PRN krill 1,000 mg-omega-3 170 mg-dha 1 cap PO BIDM 03/13/19 01/29/20 01/28/20 50 mg-epa 80 pe-jnlafj-sxtfm capsule lisinopril 40 mg tablet 40 mg PO QAM 03/13/19 01/29/20 01/28/20 metformin 500 mg tablet See Rx Instructions .ROUTE .COMPLEX 03/13/19 01/29/20 01/28/20 multivitamin,cu-opyu-cdsxwnwe 1 tab PO QAM 03/13/19 01/29/20 01/28/20 simvastatin 40 mg tablet 40 mg PO HS 03/13/19 01/29/20 01/28/20 tamsulosin 0.4 mg capsule 0.4 mg PO HS 03/13/19 01/29/20 01/28/20 insulin degludec 200 unit/mL (3 88 units SQ PM 90 Days #39 ml 07/28/19 01/29/20 01/28/20 mL) subcutaneous pen pen needle, diabetic 31 gauge x #400 ea 08/15/19 10/13/19 Unknown 3/16" OneTouch UltraSoft Lancets #300 ea NS 10/13/19 10/13/19 Unknown vitamin E (dl, acetate) 450 mg 450 mg PO DAILY 10/13/19 01/29/20 01/28/20 (1,000 unit) capsule OneTouch Ultra Blue Test Strip #400 ea NS 12/05/19 Unknown Novolog Flexpen U-100 Insulin 100 See Rx Instructions SQ TID #30 ml 01/08/20 01/29/20 01/28/20 unit/mL (3 mL) subcutaneous NS NPO Date Last Intake of Fluids: 01/28/20 Date Last Intake of Solids: 01/29/20 Time Last Intake of Solids: 08:30 Last Intake of Solids Comment: cereal Past Medical History Medical History Hyperlipidemia Hypertension Obesity Type 2 diabetes mellitus Past Family History Family History Father Stroke Heart disease Diabetes Mother Diabetes Hypertension Unknown Diabetes Past Surgical History Surgical History Hx of colonoscopy Social History Smoking Status: Never smoker Physical Exam Vital Signs Last Vital Signs Temp 37.7 C H 01/29/20 11:18 Pulse 91 H 01/29/20 12:31 Resp 19 01/29/20 12:31 BP 125/66 01/29/20 12:30 Pulse Ox 92 01/29/20 12:31 Testing Laboratory Results 01/29/20 10:05 01/29/20 10:05 PT 10.9 Seconds (9.0-12.0) 01/29/20 10:05 INR 1.0 (0.9-1.1) 01/29/20 10:05 APTT 22.4 Seconds (21.0-31.0) 01/29/20 10:05 01/29/20 10:23 POC Glucose (other) 175 H
--- NOTE | 2020-01-29 12:46 | Anesthesiology Consultation ---
Date of Service January 29, 2020 Covid 19 negative today. Assessment & Plan (1) Encounter for pre-operative examination: Chart Review Chart Review: Acceptable Risk for Surgery (emergency surgery) and Patient NOT seen in Pre Admission Testing Consults Requested none History Surgery Operation Date: 01/29/20 09:25 Proposed Procedures p Laparoscopic Appendectomy - Nadeem Gillespie DO, FACS Height/Weight Height: 5 ft 8 in Weight: 119 kg Allergies Allergy/AdvReac Type Severity Reaction Status Date / Time Bactrim Allergy Unknown hives, Verified 11/13/17 15:49 itchiness, weight loss sulfamethoxazole Allergy Unknown hives, Verified 01/29/20 10:08 itchiness, weight loss trimethoprim Allergy Unknown hives, Verified 01/29/20 10:08 itchiness, weight loss Medications Home Medications Medication Instructions Recorded Confirmed Last Taken aspirin 81 mg tablet,delayed 81 mg PO QAM 03/13/19 01/29/20 01/29/20 release glucagon (human recombinant) 1 mg See Rx Instructions .ROUTE 03/13/19 01/29/20 Unknown solution for injection .COMPLEX PRN krill 1,000 mg-omega-3 170 mg-dha 1 cap PO BIDM 03/13/19 01/29/20 01/28/20 50 mg-epa 80 av-wmenyg-qkvcu capsule lisinopril 40 mg tablet 40 mg PO QAM 03/13/19 01/29/20 01/28/20 metformin 500 mg tablet See Rx Instructions .ROUTE .COMPLEX 03/13/19 01/29/20 01/28/20 multivitamin,du-ubed-yxmgwzoq 1 tab PO QAM 03/13/19 01/29/20 01/28/20 simvastatin 40 mg tablet 40 mg PO HS 03/13/19 01/29/20 01/28/20 tamsulosin 0.4 mg capsule 0.4 mg PO HS 03/13/19 01/29/20 01/28/20 insulin degludec 200 unit/mL (3 88 units SQ PM 90 Days #39 ml 07/28/19 01/29/20 01/28/20 mL) subcutaneous pen pen needle, diabetic 31 gauge x #400 ea 08/15/19 10/13/19 Unknown 3/16" OneTouch UltraSoft Lancets #300 ea NS 10/13/19 10/13/19 Unknown vitamin E (dl, acetate) 450 mg 450 mg PO DAILY 10/13/19 01/29/20 01/28/20 (1,000 unit) capsule OneTouch Ultra Blue Test Strip #400 ea NS 12/05/19 Unknown Novolog Flexpen U-100 Insulin 100 See Rx Instructions SQ TID #30 ml 01/08/20 01/29/20 01/28/20 unit/mL (3 mL) subcutaneous NS NPO Date Last Intake of Fluids: 01/28/20 Date Last Intake of Solids: 01/29/20 Time Last Intake of Solids: 08:30 Last Intake of Solids Comment: cereal Past Medical History Medical History Hyperlipidemia Hypertension Obesity Type 2 diabetes mellitus Past Family History Family History Father Stroke Heart disease Diabetes Mother Diabetes Hypertension Unknown Diabetes Past Surgical History Surgical History Hx of colonoscopy Social History Smoking Status: Never smoker Physical Exam Vital Signs Last Vital Signs Temp 37.7 C H 01/29/20 11:18 Pulse 91 H 01/29/20 12:31 Resp 19 01/29/20 12:31 BP 125/66 01/29/20 12:30 Pulse Ox 92 01/29/20 12:31 Testing Laboratory Results 01/29/20 10:05 01/29/20 10:05 PT 10.9 Seconds (9.0-12.0) 01/29/20 10:05 INR 1.0 (0.9-1.1) 01/29/20 10:05 APTT 22.4 Seconds (21.0-31.0) 01/29/20 10:05 01/29/20 10:23 POC Glucose (other) 175 H Electrocardiogram Date: 01/29/20 Findings: + NSR @ (96) and + RBBB inferior infarct, age undetermined Other Testing CT ANGIOGRAPHY OF THE CHEST, PULMONARY EMBOLUS PROTOCOL CLINICAL HISTORY: Shortness of breath and tachycardia. COMPARISON STUDY: No previous studies for comparison. TECHNIQUE: Following IV administration of 120 mL of Optiray-320, helical axial images of the chest were obtained utilizing the pulmonary embolus protocol. Maximal intensity projections and sagittal and coronal reformats were viewed on an independent 3D workstation. IV contrast was administered without complication. Automated exposure control was utilized for the study. A dose lowering technique was utilized adhering to the principles of ALARA. CT DOSE: 2393.94 mGy.cm FINDINGS: No pulmonary emboli are identified. There is mild dilatation of the central pulmonary arteries. Main pulmonary artery measures 3.5 cm in caliber. Mild cardiomegaly is noted. There is no pericardial effusion. There is no pneumothorax or pleural effusion. There may be slight straightening of the interventricular septum. Central airways are patent. There is no consolidation. There is mild subpleural reticulation. There is no honeycombing. There is no bronchiectasis. There is a probable 5 mm left upper lobe nodule on image 139. Several mildly enlarged bilateral hilar lymph nodes are noted, including a right hilar node on image 146 of 271 measures 1.3 cm in short axis diameter. The abdomen and pelvis will be reported separately. There is a small hiatal hernia. IMPRESSION: 1. No pulmonary emboli identified although segmental and subsegmental pulmonary suboptimally assessed of this exam. 2. Mild cardiomegaly. Mild dilatation of the central pulmonary arteries which raises the possibility of pulmonary hypertension. 3. Mild subpleural reticulation within the lungs. This favors interstitial lung disease. 4. Mildly enlarged bilateral hilar lymph nodes which are nonspecific but may be related to interstitial lung disease. A follow-up chest CT in 6 months is recommended. 5. 5 mm low suspicion left upper lobe nodule which can be assessed on subsequent chest CT. ACT 112: Negative or not required by law. Electronically signed by: Zaheer Da Silva M.D. 01/29/2020 11:38 AM Dictated: 01/29/20 1111 Transcribed: 01/29/20 1117
[2020-01-29] MEDS ORDERED: LIDOCAINE HCL 2% 2 ML VIAL/AMP(20MG/ML) INFIL ONE (13:04)
[2020-01-29] MEDS ORDERED: fentaNYL citrate 100 MCG/2 ML VIAL ONE (13:04)
[2020-01-29] MEDS ORDERED: GLYCOPYRROLATE 0.2 MG/ML VIAL ONE (13:04)
[2020-01-29] MEDS ORDERED: MIDAZOLAM HCL 1 MG/ML 2ML VIAL ONE (13:04)
[2020-01-29] MEDS ORDERED: PROPOFOL IV EMULSION 10 MG/ML 20 ML VIAL IV ONE (13:04)
[2020-01-29] MEDS ORDERED: NEOSTIGMINE METHYLSULFATE 5 MG/5 ML SYR ONE (13:04)
[2020-01-29] MEDS ORDERED: DEXAMETHASONE SOD INJ 4 MG/ML VIAL ONE (13:04)
[2020-01-29] MEDS ORDERED: ONDANSETRON INJ 2 MG/ML 2 ML VIAL ONE (13:04)
[2020-01-29] MEDS ORDERED: BUPIVACAINE 0.5 % 5 MG/1 ML MPF 30ML VIAL ONE (13:54)
[2020-01-29] MEDS ORDERED: PHENYLEPHRINE HCL 10 MG/ML VIAL ONE (14:18)
[2020-01-29] MEDS ORDERED: SUCCINYLCHOLINE CHLORIDE 20 MG/ML 10 ML VIAL IV ONE (14:25)
[2020-01-29] MEDS ORDERED: ROCURONIUM BROMIDE 10 MG/ML 5 ML VIAL IV ONE (14:25)
[2020-01-29] MEDS ORDERED: LARYING-O-JET KIT (LTA) ONE (14:25)
--- NOTE | 2020-01-29 15:30 | Operative Report ---
PG Post Operative Report Pre & Post Diagnosis Operation Date: 01/29/20 09:25 Pre-Op Diagnosis: Acute Appendicitis Post-Op Diagnosis: Acute Appendicitis, non-perforated I identified the patient and participated in the time-out.: Yes Procedure Operation Date: 01/29/20 09:25 Actual Procedures p Laparoscopic Appendectomy(Not Applicable) - Nadeem Gillespie DO, FACS Surgeon Nadeem Gillespie DO, FACS Waistband Setter Sherri Souza Estimated Blood Loss 5 Findings Consistent with Post-Op Diagnosis Partially retrocecal appendix, right colon and appendix mobilized with harmonic scalpel. Acute, nonperforated appendicitis. Appendiceal blood supply taking with harmonic scalpel, good hemostasis. Appendectomy performed with aguilar loaded stapler. Specimens Appendix Anesthesia Type General Complications none Disposition Accompanied Patient To Recovery: No Disposition: Recovery Room Indications 69-year-old male presented with signs and symptoms of acute appendicitis confirmed by CT scan. Plan for laparoscopic appendectomy. The risks of the procedure were discussed, all questions were answered, and the patient agreed to proceed with surgery as planned. Description of Procedure The patient was properly identified, consented, and taken to the operating room where he was placed in the supine position. General endotracheal anesthesia was induced. SCDs and a safety belt were placed. Preoperative antibiotics were administered. A Nieto catheter was not placed as the patient urinated prior to going back to the OR. The patient's abdomen was prepped and draped in the standard sterile fashion. Surgical timeout was performed and all parties were in agreement that this was the correct patient and procedure to be performed and we continued as planned. A curvilinear infraumbilical incision was made with electrocautery and deepened down to the fascia with blunt dissection. The base of the umbilicus was grasped with a Richard and elevated towards the ceiling. An incision was made in the midline fascia with a knife and entry into the peritoneum was confirmed. Stay suture of 0 Vicryl was placed and a Kirby trocar was inserted. The abdomen was insufflated with carbon dioxide which the patient tolerated without incident. The laparoscope was inserted and no damage from initial trocar placement was noted, no gross abnormalities were noted within the 4 quadrants the abdomen. 5 mm ports were then placed in the left lower quadrant with care not to damage the epigastric vessels, and in the suprapubic midline with care not to damage the bladder. The patient was placed in Trendelenburg position and rotated towards the left. The small bowel was swept away from the right lower quadrant. The cecum was grasped with an atraumatic grasper exposing the base of the appendix. Part of the appendix was retrocecal. The harmonic scalpel was then used to take down a portion of the white line of Toldt to mobilize the right colon and the peritoneal attachments around the appendix were taken down as well. The appendix was moderately inflamed and there was no evidence of perforation. There was minimal fluid in the pelvis. The mesoappendix was divided using the harmonic scalpel starting distally at the midportion the appendix and working our way proximally. The ligament of Treves was teased away from the base of the appendix. There was a large appendicolith near the base of the appendix, but there was supple area proximal to this at the base. A aguilar loaded endoscopic stapler was then used to divide the appendix at its base. Hemostasis was good. The appendix was placed in an Endo Catch bag and removed through the umbilical port site. The right lower quadrant and pelvis was irrigated and hemostasis was found to be good. 5 mm trochars were removed under direct visualization and the abdomen was allowed to collapse. The umbilical port site fascia was closed with 0 Vicryl suture. The wound was irrigated, and the skin of all ports was closed with 4-0 Monocryl subcuticular sutures. Dermabond was placed over the wounds. The patient was extubated in the operating room and taken to the PACU where he r ecovered without apparent incident. All sponge, instrument and needle counts were correct at the conclusion of the procedure. The patient tolerated the procedure well. The physician's him assistant was present and scrubbed for the entirety of the case. She was critical in positioning the patient, prepping and draping, retraction and exposure, driving the laparoscope, closure of the incisions, and placement of the dressings. I attest to the content of the Intraoperative Record and any orders documented therein. Any exceptions are noted below.
[2020-01-29] MEDS ORDERED: CARBOHYDRATES FOR HYPOGLYCEMIA PO PRN (16:56)
[2020-01-29] MEDS ORDERED: GLUCAGON FOR INJ 1 MG VIAL SQ PRN (16:56)
[2020-01-29] MEDS ORDERED: GLUCOSE 10 TABS/TUBE PO PRN (16:56)
[2020-01-29] MEDS ORDERED: DEXTROSE 50% 50 ML SYRINGE IV PRN (16:56)
[2020-01-29] MEDS ORDERED: MoRPHine SULFATE 2 MG/ML CARP IV PRN (16:56)
[2020-01-29] MEDS ORDERED: OXYCODONE/ACETAMINOPHEN 5mg/325mg TAB PO PRN ×2 (16:56)
[2020-01-29] MEDS ORDERED: MoRPHine SULFATE 4 MG/ML 1 ML CARP\\VIAL IV PRN (16:56)
[2020-01-29] MEDS ORDERED: GLUCOSE 40% GEL 15 GM TUBE PO PRN (16:56)
[2020-01-29] MEDS: LACTATED RINGER'S 1,000 ML IV SCH (17:24)
--- NOTE | 2020-01-29 17:37 | Anesthesiology Progress Note ---
Date of Service January 29, 2020 Anesthesia Post Procedure Vital Signs Vital Signs: Temp Pulse Pulse Pulse Resp BP BP 01/29/20 17:20 36.7 C 70 18 118/69 01/29/20 16:56 36.6 C 70 16 105/67 01/29/20 16:24 68 16 112/58 L 01/29/20 16:15 36.8 C 68 16 101/62 01/29/20 16:05 68 16 98/52 L 01/29/20 15:55 69 16 105/52 L 01/29/20 15:45 67 16 107/52 L 01/29/20 15:36 37.7 C H 68 16 98/51 L 01/29/20 13:15 36.7 C 90 18 116/60 01/29/20 12:31 91 H 19 01/29/20 12:30 88 17 125/66 01/29/20 12:01 90 23 01/29/20 12:00 90 22 135/66 01/29/20 11:31 101 H 23 01/29/20 11:30 100 H 19 145/69 H 01/29/20 11:18 37.7 C H 01/29/20 11:17 93 H 17 01/29/20 11:16 92 H 21 130/66 01/29/20 11:13 96 H 21 01/29/20 10:38 103 H 22 01/29/20 10:37 102 H 24 136/67 01/29/20 10:30 99 H 24 136/67 01/29/20 10:00 93 H 22 01/29/20 09:54 96 H 20 01/29/20 09:21 38 C H 118 H 20 204/85 H Pulse Ox 01/29/20 17:20 97 01/29/20 16:56 95 01/29/20 16:24 97 01/29/20 16:15 97 01/29/20 16:05 100 01/29/20 15:55 100 01/29/20 15:45 100 01/29/20 15:36 96 01/29/20 13:15 92 01/29/20 12:31 92 01/29/20 12:30 92 01/29/20 12:01 93 01/29/20 12:00 93 01/29/20 11:31 94 01/29/20 11:30 93 01/29/20 11:18 01/29/20 11:17 93 01/29/20 11:16 91 01/29/20 11:13 01/29/20 10:38 93 01/29/20 10:37 92 01/29/20 10:30 01/29/20 10:00 01/29/20 09:54 01/29/20 09:21 93 Pain Intensity Right Lower Abdomen: Pain Intensity: 2 Transfer of Care Handoff Completed per policy Notes Mental Status: alert / awake / arousable and participated in evaluation Patient Amnestic to Procedure: Yes Nausea / Vomiting: adequately controlled Pain: adequately controlled Airway Patency, RR, SpO2: stable & adequate BP & HR: stable & adequate Hydration State: stable & adequate Anesthetic Complications: no major complications apparent and Pt Satisfied with anesthetic care
[2020-01-29] MEDS ORDERED: PHARMACY GLYCEMIC MGMT CONSULT PRN (17:40)
[2020-01-29] MEDS: INSULIN ASPART 100 UNITS/ML 3 ML PEN SC SCH ×2 (18:34→20:30)
[2020-01-29] MEDS: cefOXitin 2,000 MG in DEXTROSE 5% 50 ML IV SCH (18:41)
[2020-01-29] MEDS ORDERED: INSULIN GLARGINE SOLOSTAR 100 UNITS/ML 3 ML PEN SC ONE (20:15)
[2020-01-29] MEDS ORDERED: TAMSULOSIN HCL 0.4 MG CAP PO SCH (21:00)
[2020-01-30] MEDS: LACTATED RINGER'S 1,000 ML IV SCH (00:29)
[2020-01-30] MEDS: cefOXitin 2,000 MG in DEXTROSE 5% 50 ML IV SCH ×2 (00:29→05:48)
[2020-01-30] MEDS: INSULIN ASPART 100 UNITS/ML 3 ML PEN SC SCH ×3 (00:34→08:59)
--- NOTE | 2020-01-30 06:08 | Electrocardiogram Report ---
Test Reason : Blood Pressure : / mmHG Vent. Rate : 096 BPM Atrial Rate : 096 BPM P-R Int : 136 ms QRS Dur : 146 ms QT Int : 394 ms P-R-T Axes : -23 011 -23 degrees QTc Int : 497 ms Poor data quality, interpretation may be adversely affected Normal sinus rhythm Right bundle branch block possible Inferior infarct , age undetermined Abnormal ECG No previous ECGs available Confirmed by Ari Ramos ([id number]) on 01/29/2020 5:05:46 PM Referred By: Confirmed By:Blaine Ramos
[2020-01-30 06:47] LABS: Estimated Average Glucose 186 mg/dl; Hemoglobin A1C 8.1 % (4.5-5.6)
--- NOTE | 2020-01-30 08:07 | Surgery Progress Note ---
Date of Service January 30, 2020 Assessment & Plan (1) Acute appendicitis: POD#1 lap appendectomy clinically doing well tolerated liquid diet & denies any abdominal pain advance to regular for breakfast this AM plan for discharge to home today, discharge instructions given follow up with Dr. Gillespie within 1-2 weeks Admission and Anticipated Discharge Date Admission Date: January 29, 2020 Subjective Patient feeling well this AM and offers no complaints. Denies any abdominal pain or nausea. He tolerated clear liquids yesterday and is hungry for breakfast. Eager to go home. Physical Exam Physical Exam: awake/alert Respiratory: normal respiratory effort Gastrointestinal (Abdomen): Inspection/Auscultation: + abdominal surgical incision (c/d/i with dermabond overtop); abdomen not distended Percussion/Palpation: abdomen soft; abdomen nontender Results & Data ([facility]) Vital Signs (Past 12 Hours) Vital Signs Temp Pulse Resp BP Pulse Ox 01/30/20 03:47 36.7 C 55 L 16 103/62 94 01/30/20 00:17 36.9 C 60 16 110/66 92 PG Care Time/CCT Total # of Minutes Spent Total Time Spent with Patient: Total time spent is greater than 50% in coordination of care (as documented) at patient's floor/unit and/or counseling patient: Coding Level of Care Code None Diagnoses Acute appendicitis K35.80
[2020-01-30] MEDS ORDERED: ASPIRIN 81 MG ECTAB PO SCH (09:00)
--- NOTE | 2020-01-30 11:37 | Discharge Summary ---
Date of Service January 30, 2020 Admission HPI Per Admitting Provider This is a 69y M with a PMH of DM2 and HTN who presents to the [facility] ED on 01/29/20 with complaints of right lower abdominal pain and chills. Patient reports he woke up around 2am this morning and felt some RLQ pain. He went to the bathroom and returned to bed, however did not get much sleep. The pain continued to persist, but he decided to eat some breakfast which consisted of a bowl of cereal. Subsequently thereafter he says he developed the shivers along with nausea/vomiting. He decided to come into the ER for further evaluation. In the ED he was found to be febrile and tachycardic. A CT a/p was obtained that r evealed findings concerning for acute appendicitis. Surgery was consulted for further evaluation. Principal Diagnosis acute appendicitis Discharge Exam awake/alert Respiratory normal respiratory effort Gastrointestinal (Abdomen) Inspection/Auscultation: + abdominal surgical incision (c/d/i with dermabond overtop) Percussion/Palpation: abdomen soft; abdomen nontender Discharge Data Allergies Allergy/AdvReac Type Severity Reaction Status Date / Time Bactrim Allergy Unknown hives, Verified 11/13/17 15:49 itchiness, weight loss sulfamethoxazole Allergy Unknown hives, Verified 01/29/20 10:08 itchiness, weight loss trimethoprim Allergy Unknown hives, Verified 01/29/20 10:08 itchiness, weight loss Consultations 01/29/20 11:23 Consult General Surgery Stat Procedures Performed Operation Date: 01/29/20 09:25 Actual Procedures p Laparoscopic Appendectomy(Not Applicable) - Nadeem Gillespie DO, FACS Ordered Studies 01/29/20 09:32 CT abd pelvis IV con only Stat CT angio chest PE protocol Stat Hospital Course (1) Acute appendicitis: This is a 69y M with a PMH of DM2 and HTN who presents to the [facility] ED on 01/29/20 with complaints of right lower abdominal pain and chills. Workup with a CT a/p revealed findings consistent with acute appendicitis. Patient was febrile and tachycardic in the ER and he was tender to palpation in the RLQ. Decision was made to take him to the OR for laparoscopic appendectomy with Dr. Gillespie. The patient tolerated the procedure well, see op note for full details. He recovered in the PACU and was transferred to the med/surg floor post op for overnight observation. Diet was advanced as tolerated, pain remained well controlled on prn medication, he was able to void and ambulate independently, and incisions remained clean and intact. Pharmacy was consulted for assistance with diabetic management. On POD#1 the patient was clinically feeling well and was deemed stable for discharge to home with plans to follow up in clinic within 1-2 weeks. Total Time Total Time Spent Total Time Spent (In Minutes): 5 Discharge Plan Discharge Items Patient Disposition: Home - Self-Care Reason For Visit: LOWER RIGHT SIDE PAIN IN BELOW WAIST, CHILLS Discharge Diagnosis: laparoscopic appendectomy Condition on Discharge: Good Activity: Per Instructions section Lifting: No more than 10 pounds Bathing Comment: may shower; no soaking in tubs/pools Exercise/Sports: Wait until after follow-up appointment Driving/Machine Use: do not resume driving while taking narcotics for pain Non-emergency contact: Surgeon Call non-emergency contact if: you have any medication questions, your symptoms worsen, your pain is not controlled, your pain is worsening, you have a fever, your temperature is above 101.5, your wound has increased redness, your wound has increased drainage and your wound pain has increased Follow-up/Referrals: Nadeem Gillespie DO, CARLI [Physician] - 02/08/20 10:30 am (Please call to schedule follow up in clinic within 1-2weeks) Mikhail Hyman MD [Primary Care Provider] - Diet: Carb Consistent or DM2 Addtl Attending Provider Instructions: Pending Studies at Discharge: Yes Studies:: surgical pathology Stand-Alone Forms: My [facility], Opioid Pain Management, Smoking Cessation Medications and DC Order Prescriptions: New oxycodone-acetaminophen [Percocet] 5-325 mg tablet 1 - 2 tab PO .q4-6h PRN (Reason: pain, for initial therapy, max 6 tabs per day) Qty: 10 RF: 0 Continued Tresiba FlexTouch U-200 200 unit/mL (3 mL) insulin pen 88 units SQ PM 90 Days Qty: 39 RF: 3 (DME) pen needle, diabetic [BD Ultra-Fine Mini Pen Needle] 31 gauge x 3/16" needle See Rx Instructions .ROUTE .MEDSUPPLY Qty: 400 RF: 3 (DME) blood sugar diagnostic [OneTouch Ultra Blue Test Strip] Strip See Rx Instructions .ROUTE .MEDSUPPLY Qty: 400 RF: 3 Novolog Flexpen U-100 Insulin 100 unit/mL (3 mL) insulin pen See Rx Instructions SQ TID Qty: 30 RF: 5 aspirin 81 mg tablet,delayed release (DR/EC) 81 mg PO QAM RF: 0 tamsulosin [Flomax] 0.4 mg capsule 0.4 mg PO HS RF: 0 Glucagon Emergency Kit (human) 1 mg recon soln See Rx Instructions .ROUTE .COMPLEX PRN (Reason: Hypoglycemia) RF: 0 [id number]-ast [krill oil] [id number] mg capsule 1 cap PO BIDM RF: 0 lisinopril 40 mg tablet 40 mg PO QAM RF: 0 metformin 500 mg tablet See Rx Instructions .ROUTE .COMPLEX RF: 0 Complete Multivitamin tablet 1 tab PO QAM RF: 0 simvastatin 40 mg tablet 40 mg PO HS RF: 0 vitamin E (dl, acetate) 450 mg (1,000 unit) capsule 450 mg PO DAILY RF: 0 (DME) lancets [OneTouch UltraSoft Lancets] Misc See Dose Instructions .ROUTE .MEDSUPPLY Qty: 300 RF: 3 Discharge Orders: Discharge Order (Routine); Ordered 01/30/20 Ordered By: Sherri Hyde/Other Patient Handouts: Managing Type 2 Diabetes, Appendectomy Admission Data Admit Date/Time: 01/29/20 15:41 Attending Provider: Nadeem Gillespie Admit Provider: Nadeem Gillespie Primary Care Provider: Mikhail Hyman Other Providers: Nadeem Gillespie Other Interventions: Discharge Summary Assessment (RN) Last Done: 01/30/20 10:15 Coding Level of Care Code D/C Day Management <30 mins Diagnoses Acute appendicitis K35.80
== END 2020-01-30 10:50 | disposition home or self-care (01) ==
LOC: ED 09:16 → 3W 09:16